=== PATIENT | female | born 1965 | race Caucasian/White ===

== ENCOUNTER 2019-10-04 18:13 | Emergency (ER) | payer MEDICAID, OTHER ==
--- NOTE | 2019-10-04 19:17 | EDM.PDOC ---
ED HPI GENERAL MEDICAL PROBLEM - General Chief Complaint: Lower Extremity Injury/Pain Stated Complaint: RIGHT CALF BRUISING, POS BLOOD CLOUGHT PER PT Time Seen by Provider: 10/04/19 19:13 Source of Information: Reports: Patient History Limitations: Reports: No Limitations - History of Present Illness INITIAL COMMENTS - FREE TEXT/NARRATIVE: awhile ago slipped on ice and did the splits and felt right thigh muscle tearing sensation, that got better then 1 week ago felt onto buttocks area and re-injured right thigh with bruising which is better. then 4 days ago started pain back of calf and thigh feels like the DVT she had years ago. denies CP/SOB but does have some discomfort in right shoulder area. can move it fine though. Right Lower Leg Pain Score (Numeric/FACES): 2 - Related Data Allergies Allergy/AdvReac Type Severity Reaction Status Date / Time codeine Allergy Nausea and Verified 10/04/19 18:51 Vomiting Home Meds: Home Meds DULoxetine HCl [Duloxetine HCl] 30 mg PO DAILY 10/04/19 [History] DULoxetine HCl [Duloxetine HCl] 60 mg PO DAILY 10/04/19 [History] Past Medical History Cardiovascular History: Reports: Blood Clots/VTE/DVT - Past Surgical History GI Surgical History: Reports: Hernia Repair/Other Female Surgical History: Reports: Hysterectomy Musculoskeletal Surgical History: Reports: Shoulder Surgery Social & Family History - Tobacco Use Smoking Status *Q: Current Every Day Smoker Years of Tobacco use: 30 Packs/Tins Daily: 0.1 Second Hand Smoke Exposure: Yes - Recreational Drug Use Recreational Drug Use: No Review of Systems - Review of Systems Review Of Systems: Comprehensive ROS is negative, except as noted in HPI. ED EXAM, GENERAL - Physical Exam Exam: See Below Exam Limited By: No Limitations General Appearance: Alert, WD/WN, Mild Distress, Other (discomfort) Ears: Hearing Grossly Normal Throat/Mouth: Normal Voice, No Airway Compromise Head: Atraumatic Neck: Non-Tender, Full Range of Motion Respiratory/Chest: No Respiratory Distress Cardiovascular: Regular Rate, Rhythm GI/Abdominal: Soft, Non-Tender Extremities: Other (right thigh old ecchymosis, tender [id number]-wlikd. [place] wnl, gait limited to discomfort) Neurological: Alert, Oriented, Normal Cognition, No Motor/Sensory Deficits Psychiatric: Normal Affect, Normal Mood Skin Exam: Warm, Dry, Normal Color Lymphatic: No Adenopathy Course - Vital Signs Last Recorded V/S: Last Vital Signs Temp 36.2 C 10/04/19 18:46 Pulse 76 10/04/19 18:46 Resp 18 10/04/19 18:46 BP 110/76 10/04/19 18:46 Pulse Ox 97 10/04/19 18:46 - Orders/Labs/Meds Orders: Active Orders 24 hr Category Date Time Status Chest w Cont [CT] Urgent Exams 10/04/19 20:00 Taken Venous Doppler Lwr Ext Rt [US] Urgent Exams 10/04/19 19:09 Taken Labs: Laboratory Tests 10/04/19 10/04/19 10/04/19 Range/Units 19:15 19:15 19:15 WBC 7.1 (5.0-10.0) 10^3/uL RBC 4.08 L (4.2-5.4) 10^6/uL Hgb 13.2 (12.0-16.0) g/dL Hct 40.1 (37.0-47.0) % MCV 98.3 (80-100) fL MCH 32.4 (27.0-34.0) pg MCHC 32.9 L (33.0-35.0) g/dL Plt Count 327 (150-450) 10^3/uL Neut % (Auto) 59.9 (42.2-75.2) % Lymph % (Auto) 29.7 (20.5-50.1) % [place] % (Auto) 6.8 (2-8) % Eos % (Auto) 3.2 H (1.0-3.0) % Baso % (Auto) 0.4 (0.0-1.0) % PT 9.1 (9.0-12.0) SEC INR 0.9 (0.9-1.2) APTT 22.1 (22.0-34.0) SEC D-Dimer, Quantitative 1130 H (0-400) ng/mL Sodium 139 (135-145) mmol/L Potassium 4.5 (3.6-5.0) mmol/L Chloride 102 (101-111) mmol/L Carbon Dioxide 27.0 (21.0-31.0) mmol/L Anion Gap 14.5 BUN 23 H (7-18) mg/dL Creatinine 1.0 (0.6-1.3) mg/dL Est Cr Clr Drug Dosing 52.58 mL/min Estimated GFR (MDRD) 58 BUN/Creatinine Ratio 23.00 Glucose 105 (74-105) mg/dL Calcium 9.0 (8.4-10.2) mg/dl Total Bilirubin 0.9 (0.2-1.0) mg/dL AST 22 (10-42) IU/L ALT 18 (10-60) IU/L Alkaline Phosphatase 70 (42-121) IU/L Total Protein 7.0 (6.7-8.2) g/dl Albumin 4.3 (3.2-5.5) g/dl Globulin 2.7 Albumin/Globulin Ratio 1.59 Meds: Medications Discontinued Medications Generic Name Dose Route Start Last Admin Trade Name Freq PRN Reason Stop Dose Admin Iopamidol 100 ml 10/04/19 19:59 10/04/19 20:16 Isovue-370 (76%) IVPUSH 10/04/19 20:00 100 ml ONETIME ONE Administration - Re-Assessments/Exams Free Text/Narrative Re-Assessment/Exam: 10/04/19 21:11 results discussed with pt. Departure - Departure Time of Disposition: 21:12 Disposition: Home, Self-Care 01 Condition: Good Clinical Impression: Leg pain, diffuse Qualifiers: Laterality: right Qualified Code(s): M79.604 - Pain in right leg - Discharge Information Instructions: Contusion, [id number] Forms: ED Department Discharge Additional Instructions: 1) elevate leg as much as possible 2) use ice or heat for comfort 3) take tylenol or motrin for discomfort 4) recheck if there is any change or concern Sepsis Event Note - Evaluation Sepsis Screening Result: No Definite Risk - Focused Exam Vital Signs: Vital Signs Temp Pulse Resp BP Pulse Ox 10/04/19 18:46 36.2 C 76 18 110/76 97 Date Exam was Performed: 10/04/19 Time Exam was Performed: 21:11 - My Orders Last 24 Hours: My Active Orders 10/04/19 19:09 Venous Doppler Lwr Ext Rt [US] Urgent 10/04/19 20:00 Chest w Cont [CT] Urgent - Assessment/Plan Last 24 Hours: My Active Orders 10/04/19 19:09 Venous Doppler Lwr Ext Rt [US] Urgent 10/04/19 20:00 Chest w Cont [CT] Urgent
[2019-10-04 19:46] LABS: ANION GAP 14.5
[2019-10-04] MEDS ORDERED: Iopamidol 755 Mg/ML 100 ML Bottle IVPUSH ONE (19:59)
== END 2019-10-04 21:20 | disposition home or self-care (01) ==
LOC: DL.ED 18:13
DX: M79.661 Pain in right lower leg (principal); M79.651 Pain in right thigh; F17.210 Nicotine dependence, cigarettes, uncomplicated; Z88.5 Allergy status to narcotic agent; Z79.899 Other long term (current) drug therapy
CPT/HCPCS: 36415; 71260; 80053; 85025; 85379; 85610; 85730; 93971; 99284; Q9967